=== PATIENT | male | born 1960 | race Caucasian/White ===

== ENCOUNTER 2020-04-19 14:01 | Emergency (ER) | payer MEDICAID ==
[~2020-04-19] VITALS: Ht 134.6 cm; Wt 45.4 kg
[2020-04-19 17:47] VITALS: BP 134/72
[2020-04-19] MEDS ORDERED: QUETIAPINE FUMA25 MG PO (18:00)
[2020-04-19] MEDS ORDERED: TESSALON PERLE100 M1 PO (18:01)
[2020-04-19] MEDS ORDERED: CALCIUM CARBON500 MG PO (18:01)
[2020-04-19] MEDS ORDERED: LORAZEPAM I2 MG/1 ML PO (18:04)
== END 2020-04-19 23:01 ==
LOC: ER 14:01
DX: U07.1 COVID-19 (principal); R45.1 Restlessness and agitation; F91.1 Conduct disorder, childhood-onset type; Z79.899 Other long term (current) drug therapy

== ENCOUNTER 2020-04-19 23:52 | Inpatient (IN) | payer MEDICAID ==
[~2020-04-19 23:52] MED LIST: CALCIUM CARBON500 MG PO; LORAZEPAM I2 MG/1 ML PO; QUETIAPINE FUMA25 MG PO; TESSALON PERLE100 M1 PO
[2020-04-20 09:26] VITALS: BP 98/63
[2020-04-20 16:20] VITALS: BP 142/80
[2020-04-20 18:04] LABS: HEMOGLOBIN 15.2 gm/dL (14.0-18.0); MCH 31.6 pg (26.0-34.0); MCHC 32.4 g/dL (28.0-37.0); MCV 97.7 fL (80.0-100.0); RBC 4.81 mil/uL (4.50-6.00); RDW 16.7 % (10.5-14.5); WBC 12.6 thou/uL (4.0-11.0)
[2020-04-20 18:12] LABS: CALCIUM 8.9 mg/dL (8.5-10.1); CREATININE 1.2 mg/dL (0.7-1.3); MAGNESIUM 2.4 mg/dL (1.8-2.4); POTASSIUM 3.6 mmol/L (3.5-5.1)
[2020-04-20 18:41] LABS: FOLIC ACID 6.5 ng/mL (8.6-58.9)
[2020-04-21] VITALS (8 sets, daily range): BP systolic 88–118; BP diastolic 54–88
[2020-04-21 16:24] LABS: ABSOLUTE NEUTROPHILS 5.5 thou/uL (1.4-8.2); BASOPHILS 0.3 % (0.0-2.0); EOSINOPHILS 0.7 % (0.0-3.0); HEMATOCRIT 45.6 % (42.0-52.0); HEMOGLOBIN 15.1 gm/dL (14.0-18.0); LYMPHOCYTES 6.9 % (24.0-44.0); MONOCYTES 3.9 % (1.0-8.0); PLATELET COUNT 223 thou/uL (150-400); POLYS 88.2 % (36.0-66.0); RDW 16.6 % (10.5-14.5); WBC 6.3 thou/uL (4.0-11.0)
[2020-04-22 07:30] VITALS: BP 128/83
[2020-04-22 19:24] VITALS: BP 120/97
[2020-04-23 08:53] VITALS: BP 94/53
[2020-04-23 19:15] VITALS: BP 102/59
[2020-04-23 23:47] VITALS: BP 102/59
[2020-04-24 07:30] VITALS: BP 163/68
[2020-04-24 09:09] VITALS: BP 104/72
[2020-04-24 19:25] VITALS: BP 93/57
[2020-04-24 20:00] VITALS: BP 93/57
[2020-04-25 05:59] LABS: HEMATOCRIT 43.7 % (42.0-52.0); HEMOGLOBIN 14.2 gm/dL (14.0-18.0); MCH 31.5 pg (26.0-34.0); MCHC 32.6 g/dL (28.0-37.0); MCV 96.8 fL (80.0-100.0); RBC 4.51 mil/uL (4.50-6.00); RDW 16.6 % (10.5-14.5)
[2020-04-25 06:05] LABS: ALBUMIN 2.5 g/dL (3.4-5.0); CREATININE 0.9 mg/dL (0.7-1.3); MAGNESIUM 2.4 mg/dL (1.8-2.4); POTASSIUM 3.8 mmol/L (3.5-5.1); TOTAL BILIRUBIN 0.8 mg/dL (0.2-1.0); TOTAL PROTEIN 7.3 g/dL (6.4-8.2)
[2020-04-25 08:59] VITALS: BP 102/56
[2020-04-25 19:53] VITALS: BP 110/62
[2020-04-26 09:15] VITALS: BP 113/72
[2020-04-26 19:30] VITALS: BP 128/74
[2020-04-26 19:35] VITALS: BP 128/74
[2020-04-27 09:10] VITALS: BP 115/67
[2020-04-27 09:51] VITALS: BP 115/67
[2020-04-27 19:44] VITALS: BP 109/69
[2020-04-27 21:30] VITALS: BP 109/69
[2020-04-28 08:33] VITALS: BP 121/71
[2020-04-28 20:04] VITALS: BP 122/67
[2020-04-28 21:22] VITALS: BP 122/67
[2020-04-29 09:15] VITALS: BP 122/76
[2020-04-29 10:08] VITALS: BP 122/76
[2020-04-29 19:32] VITALS: BP 133/77
[2020-04-29 22:29] VITALS: BP 133/77
[2020-04-30] MEDS ORDERED: RISPERDAL 1 MG T1 MG PO (07:13)
[2020-04-30] MEDS ORDERED: SEROQUEL 25 MG25 M1 PO (07:14)
[2020-04-30] MEDS ORDERED: SEROQUEL 100 M100 M1 PO (07:15)
[2020-04-30] MEDS ORDERED: AUGMENTIN 500-1 EACH PO (07:17)
[2020-04-30] MEDS ORDERED: CALTRATE-600 W1 EACH PO (07:18)
[2020-04-30] MEDS ORDERED: LACTULOSE20 GM/30 M PO (07:18)
[2020-04-30] MEDS ORDERED: FOLIC ACID1 MG PO (07:19)
[2020-04-30] MEDS ORDERED: PEPCID20 MG PO (07:19)
[2020-04-30] MEDS ORDERED: VITAMIN D325 MC1 PO (07:20)
[2020-04-30 10:03] VITALS: BP 85/51
--- NOTE | 2020-05-01 07:28 | D ---
[facility] [place] [address] DISCHARGE SUMMARY Name: LINDA DENNIS Room #: 517-A [facility] IN ..#: [id number] Admission: 04/19/20 Attend Phys: Sha Hernandez MD Discharge: 04/30/20 Date of : 64 Report #: [id number] THIS REPORT FOR: cc: Kimmy Faustin MD, Kathleen MD Kerstein,Adriano Mello DO ~ DATE OF SERVICE: 04/30/2020 INPATIENT PSYCHIATRIC DISCHARGE SUMMARY ATTENDING PSYCHIATRIST: Adriano Padilla DO. METAL REED TUNER AT THE TIME OF DISCHARGE: Dr. Dia Acharya. DISCHARGE DIAGNOSES: Major neurocognitive disorder, likely due to Alzheimer disease with behavioral disturbance, also Down syndrome. ADDITIONAL MEDICAL COMORBIDITIES: Include pneumonia, likely aspiration, being treated with a course of Augmentin; dysphagia; B12, vitamin D, and folate deficits, being replenished; protein-calorie malnutrition, and gait disturbance. DISCHARGE PLAN: The patient is discharging to [facility]. Medical and psychiatric care to be per that facility. DISCHARGE MEDICATIONS: Augmentin 500/125 one tablet p.o. b.i.d., prescription given for #14, 7-day supply; Seroquel 25 mg every 4 hours as needed for agitation; Seroquel 100 mg as needed for sleep at 2230; risperidone 1 mg oral twice daily for mood stabilization; lactulose 20 grams oral daily for bowel motility; calcium carbonate with vitamin D3, one tablet twice daily; famotidine; Pepcid 20 mg oral daily; folic acid 1 mg oral daily; and vitamin D3 5000 International Units oral daily. DISCHARGE ACTIVITY AND PLAN: As tolerated. The patient requires 24/7 care and does require assisted feedings. He has strict texture restrictions with his diet to puree consistency and nectar thick fluids. The patient did have a video swallow this admission. The patient is a no code. Palliative care was recommended. PERTINENT LABORATORY DATA: This admission include hematology, last numbers were H and H on 04/25/2020 were 14.2 and 43.7, white count 4.0, platelet count 217. Last chemistries done on 04/25/2020, sodium 136, potassium 3.9, chloride 102, bicarbonate 27, anion gap 7, BUN 10, creatinine 0.9, estimated GFR 87, glucose 95, calcium 9.0, magnesium 2.4, total bilirubin 0.8, AST 21, ALT 19, alkaline phosphatase 67, total protein 7.3, albumin 2.5. Vitamin B12 level 424. Folate level low at 6.5. Vitamin D low at 23.5 on 04/20/2020. [facility] [address] [place] [address] DISCHARGE SUMMARY Name: LINDA DENNIS Room #: 517-A [facility]#: [id number] Admission: 04/19/20 Attend Phys: Sha Hernandez MD Discharge: 04/30/20 Date of : 64 Report #: [id number] IMAGING ON THIS ADMISSION: Couple of chest x-rays and a video swallow. He had left lower lobe pneumonia visible on chest x-ray as recently as 04/23/2020, original one was done on 04/20/2020. Video swallow was read as no laryngeal penetration or aspiration seen with nectar thick-barium or applesauce-coated barium. REASON FOR ADMISSION: Back on the 04/19/2020 or so was as follows: A 60-year-old male with Down syndrome, UTI, and protein-calorie malnutrition. He was screaming, yelling, agitated, and aggressive in the nursing facility. Those were the reasons at this time. HOSPITAL COURSE: The patient was admitted to the Geriatric Psychiatry Unit.: The patient was given initially Geodon IM for agitation. Risperidone 1 mg oral twice daily was started. The patient had some sleep difficulties, was given Seroquel scheduled and Seroquel p.r.n. for sleep. The patient's behavior generally improved. Pneumonia was detected. The patient is believed to be micro-aspirating. The decision maker, Holly, was given the option of transferring him to medical admission for placement of a PEG tube. She declined this. The patient's PCP called this office during admission. At the day of discharge, the patient is ready for return to long-term care and is not an imminent threat to self or others. PHYSICAL EXAMINATION: VITAL SIGNS: On the day of discharge, temperature 36.3, pulse 50, respirations 17, BP 85/51, O2 sat 98%. MUSCULOSKELETAL: In Bouchra chair, sitting back, and in no apparent distress. MENTAL STATUS EXAMINATION: This is a well-developed, somewhat ill-appearing male with Down syndrome. Attention and concentration both limited. Speech, largely nonverbal including today. No signs of self-harm behavior evident. Interview was limited due to the patient's dementia and him being fairly mute. Insight impaired, judgment impaired. Fund of knowledge well below average. Mood and affect, appearing to be congruent and euthymic. PROGNOSIS: For this patient is guarded to poor. Given the aspiration, presents the likelihood of him developing fulminant pneumonia and sepsis and his dementia. <ELECTRONICALLY SIGNED> By: Adriano Padilla DO 05/01/20 0728 1825 [id number] Adriano Padilla DO /nt
== END 2020-04-30 11:19 | DRG 56 ==
LOC: SBH 23:52
PROVIDERS: Hospitalist; Internal Medicine; Nurse Practitioner; ADMIT Psychiatry & Neurology Psychiatry; ATTEND Psychiatry & Neurology Psychiatry
DX: G30.9 Alzheimer's disease, unspecified (principal); F01.51 Vascular dementia, unspecified severity, with behavioral disturbance; J18.9 Pneumonia, unspecified organism; F79 Unspecified intellectual disabilities; F02.81 Dementia in other diseases classified elsewhere, unspecified severity, with behavioral disturbance; E46 Unspecified protein-calorie malnutrition; R13.10 Dysphagia, unspecified; Z66 Do not resuscitate; Z51.5 Encounter for palliative care; E53.8 Deficiency of other specified B group vitamins; E55.9 Vitamin D deficiency, unspecified; Q90.9 Down syndrome, unspecified; Z86.16 Personal history of COVID-19; Z79.899 Other long term (current) drug therapy
CPT/HCPCS: 10880